=== PATIENT | male | born 1955 | race Caucasian/White ===

== ENCOUNTER 2018-09-13 12:52 | Emergency (ER) | payer SELFPAY ==
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
== END 2018-09-13 16:29 | disposition home or self-care (01) ==
LOC: ER 12:52
DX: S29.012A Strain of muscle and tendon of back wall of thorax, initial encounter (principal); V49.50XA Passenger injured in collision with unspecified motor vehicles in traffic accident, initial encounter
CPT/HCPCS: 36415; 71260; 74177; Q9967